=== PATIENT | female | born 1990 | race Caucasian/White ===

== ENCOUNTER 2022-08-21 11:23 | Emergency (ER) | payer OTHER, SELFPAY ==
[2022-08-21] VITALS (20 sets, daily range): BP systolic 120–138; BP diastolic 69–92; PULSE 94; RESP 18; TEMP 36.6; O2SAT 95–100
--- NOTE | ~2022-08-21 | US_ITS ---
EXAMINATION: US OB <=14 wk fetus w TV DATE: 08/21/2022 13:20 INDICATION: Vaginal bleeding during ninth week of . TECHNIQUE: Real-time pelvic ultrasound utilizing both a transvaginal and transabdominal probe was pe rformed. The interpreting radiologist was not present for the study. COMPARISON: None. FINDINGS: The uterus measures 10.3 x 4.5 x 6.1 cm. The endometrial complex is thickened measuring up to 1.5 cm .No evident intrauterine gestational sac. 6 mm anechoic nabothian cysts at the cervix. The right ovar y is not visualized. The left ovary measures 3.8 x 1.9 x 1.8 cm. Vascular flow with arterial waveform s is evident in the left ovary on color Doppler. There is minimal amount of anechoic free fluid in th e cul-de-sac. IMPRESSION: 1. Endometrial complex measures up to 1.5 cm in thickness but no discernible intrauterine gestational sac. In the absence of any prior imaging the differential would include early, failed or ectopic pre gnancy. Correlate with serial beta-hCG levels and repeat imaging as clinically indicated. Reviewed, dictated and finalized at location B. IMPRESSION: 1. Endometrial complex measures up to 1.5 cm in thickness but no discernible in trauterine gestational sac. In the absence of any prior imaging the differentia l would include early, failed or ectopic . Correlate with serial beta- hCG levels and repeat imaging as clinically indicated.
--- NOTE | 2022-08-21 12:06 | ED.FEMALEGU ---
HPI - Female Genitourinary General Chief complaint: Vaginal Bleeding Stated complaint: 9 week pg, vag bleed Time Seen by Provider: 08/21/22 12:02 History of Present Illness HPI Narrative: Patient is a 32-year-old female presenting with vaginal bleeding. Patient states that she is approximately 9 weeks . Her last menstrual period was June 19. States that she had some spotting several days ago but then she woke up this morning with bright red blood soaking her underwear and liner. She denies any abdominal cramping or pain. States that she is scheduled for her first ultrasound tomorrow. She denies lightheadedness, chest pain, shortness of breath, dysuria. Related Data Home Medications Medication Instructions Recorded Confirmed No Home Medications 08/22/22 08/22/22 Allergies Allergy/AdvReac Type Severity Reaction Status Date / Time No Known Allergies Allergy Verified 08/22/22 11:00 Review of Systems Review of Systems: All systems reviewed & are unremarkable except as noted in HPI and below PMFSH Family History Family History (Updated 08/22/22 @ 11:01 by Parisa Vanessa [facility]) Grandparent Diabetes mellitus Social History Social History (Updated 08/22/22 @ 11:02 by Parisa Vanessa [facility]) Smoking status: Never smoker Alcohol intake: never Substance use: never Exam Narrative: GENERAL: Well-appearing, well-nourished, and in no acute distress. HEAD: Normocephalic, atraumatic. EYES: PERRLA and EOMI. ENT: Nares clear, no rhinorrhea or epistaxis. Mucous membranes moist. NECK: Supple. CHEST: Clear to auscultation. No respiratory distress. HEART: Regular rate and rhythm. No murmur heard. Normal peripheral pulses. ABDOMEN: Soft, nontender, nondistended, normal active bowel sounds. EXTREMITIES: Normal range of motion. No edema. SKIN: Warm, dry, no rash. NEURO: No focal deficits. Alert and oriented x3. PSYCH: Normal mood and affect. Course Course Emergency Course: Patient is a 32-year-old female presenting with vaginal bleeding in the setting of early . Vitals are within normal limits. Patient is well-appearing and in no acute distress. Ultrasound shows a thickened endometrial complex but no intrauterine gestational sac. Differential includes early, failed, or ectopic . CBC with stable hemoglobin. Spoke with Dr. Sharma with [facility] who advises outpatient beta hCG testing in 48 hours and he will follow-up with her early next week. Advised that she call his clinic today to set up this appointment. Patient voiced understanding and is agreeable with this plan. Strict return precautions were given regarding signs of ectopic . Patient discharged in stable condition. Vital Signs Vital signs: Vital Signs Temperature 97.8 F 08/21/22 11:27 Pulse Rate 94 08/21/22 11:27 Respiratory Rate 18 08/21/22 11:27 Blood Pressure 138/92 H 08/21/22 11:27 Pulse Oximetry 99 08/21/22 11:27 Oxygen Delivery Room Air 08/21/22 11:27 Temperature 97.8 F 08/21/22 11:27 Pulse Rate 94 08/21/22 11:27 Respiratory Rate 18 08/21/22 11:27 Blood Pressure 120/85 08/21/22 15:43 Pulse Oximetry 99 08/21/22 15:00 Oxygen Delivery Room Air 08/21/22 11:27 MDM - Female Genitourinary Lab Data Result diagrams: 08/21/22 12:09 Labs: Lab Results 08/21/22 08/21/22 08/21/22 Range/Units 12:09 12:09 12:09 WBC 7.3 (4.5-10.0) K/mm3 RBC 4.66 (4.2-5.4) M/mm3 Hgb 14.1 (12.0-15.0) g/dL Hct 42.9 (37.0-47.0) % MCV 92.1 (80-100) fl MCH 30.3 (26-34) pg MCHC 32.9 (32-36) g/dl RDW 12.9 (11.5-14.5) % Plt Count 294 (150-375) k/mm3 MPV 11.1 H (7.4-10.4) fl Immature Gran % (Auto) 0.3 (0-0.5) % Neut % (Auto) 61.0 (45.5-73.1) % Lymph % (Auto) 28.1 (18.3-44.2) % Boundary % (Auto) 5.9 (2.6-8.5) % Eos % (Auto) 4.1 (0-4.4) % Baso % (Auto) 0.6 (0.2-1.2) % Lymph # (Auto) 2.04 (0.9
[2022-08-21 12:21] LABS: Basophils Percent Auto 0.6 % (0.2-1.2); Eosinophils Absolute Auto 0.3 K/mm3 (0-0.3); Eosinophils Percent Auto 4.1 % (0-4.4); Hematocrit 42.9 % (37.0-47.0); Hemoglobin 14.1 g/dL (12.0-15.0); Immature Granulocyte Absolute 0.02 K/mm3 (0.00-0.031); Immature Granulocyte Percent A 0.3 % (0-0.5); Lymphocytes Absolute Auto 2.04 K/mm3 (0.9-3.2); Lymphocytes Percent Auto 28.1 % (18.3-44.2); Mean Corpuscular HGB Conc 32.9 g/dl (32-36); Mean Corpuscular Hemoglobin 30.3 pg (26-34); Mean Corpuscular Volume 92.1 fl (80-100); Mean Platelet Volume 11.1 fl (7.4-10.4); Monocytes Absolute Auto 0.4 K/mm3 (0.1-0.6); Monocytes Percent Auto 5.9 % (2.6-8.5); Neutrophils Absolute Auto 4.4 K/mm3 (1.3-6.7); Platelet Count Result 294 k/mm3 (150-375); Red Blood Count 4.66 M/mm3 (4.2-5.4); Red Cell Distribution Width 12.9 % (11.5-14.5); White Blood Count 7.3 K/mm3 (4.5-10.0)
--- NOTE | 2022-08-21 12:50 | PC.NURSE ---
Patient off unit to US.
== END 2022-08-21 15:43 | disposition home or self-care (01) ==
PROVIDERS: Emergency Medicine; Emergency Provider Emergency Medicine
DX: O46.91 Antepartum hemorrhage, unspecified, first trimester (principal); Z3A.09 9 weeks gestation of pregnancy
CPT/HCPCS: 36415; 76801; 76817; 84702; 85025; 85461; 86850; 86900; 86901; 99284

== ENCOUNTER 2022-08-29 09:21 | Outpatient (CLI) | payer OTHER, SELFPAY ==
[2022-08-29 21:42] LABS: Beta HCG Quantitative 119.17 mIU/ML
== END 2022-08-29 09:22 | disposition home or self-care (01) ==
LOC: ANHLAB 09:22
PROVIDERS: Visit Provider Student in an Organized Health Care Education/Training Program
DX: O02.1 Missed abortion (principal)
CPT/HCPCS: 36415; 84702